=== PATIENT | female | born 1950 | race Caucasian/White ===

== ENCOUNTER 2016-12-04 08:35 | Day surgery (SDC) | payer OTHER, BC ==
[~2016-12-04] VITALS: Ht 165.1 cm; Wt 80.7 kg
[~2016-12-04 08:35] MED LIST: ALEVE220 M2 PO; CALCIUM + D SO1 EACH PO; LIPITOR10 MG PO; NASONEX17 GM BOTH NARES; NEXIUM20 MG PO; PREMPRO 0.625-1 EACH PO; PREVACID15 MG PO; PRILOSEC20 MG; ZOCOR20 MG PO
[2016-12-04 09:01] VITALS: BP 145/70
[2016-12-04 11:05] VITALS: BP 125/63
[2016-12-04 11:39] VITALS: BP 144/64
== END 2016-12-04 11:55 | disposition home or self-care (01) ==
LOC: SDC 08:35
PROC: 0UBC7ZX Excision of Cervix, Via Natural or Artificial Opening, Diagnostic (ICD-10-PCS; principal; 2016-12-04)
DX: D06.9 Carcinoma in situ of cervix, unspecified (principal); E78.00 Pure hypercholesterolemia, unspecified; K21.9 Gastro-esophageal reflux disease without esophagitis; Z88.2 Allergy status to sulfonamides; Z80.0 Family history of malignant neoplasm of digestive organs; Z80.3 Family history of malignant neoplasm of breast
CPT/HCPCS: 88307; 93005; J0131; J1100; J1885; J2250; J2405; J2765; J3010